=== PATIENT | male | born 1980 | race Caucasian/White ===

== ENCOUNTER 2019-03-29 11:54 | Emergency (ER) | payer SELFPAY ==
[~2019-03-29 11:54] MED LIST: HYDR1TAB PO
== END 2019-03-29 13:07 | disposition left against medical advice (07) ==
LOC: EDUNIT# 11:54 → ER 11:56
DX: S69.92XA Unspecified injury of left wrist, hand and finger(s), initial encounter (principal); X58.XXXA Exposure to other specified factors, initial encounter